=== PATIENT | male | born 1970 | race Caucasian/White ===

== ENCOUNTER 2016-11-03 10:07 | Emergency (ER) | payer BC ==
--- NOTE | 2016-11-03 10:40 | ERNOTE ---
Medical Problem HPI - General Chief Complaint: General Assessment Time Seen by Provider: 11/03/16 10:27 Source: patient Exam Limitations: no limitations - Immun/Allergies/Home Medications Immunizations: IMMUNIZATION HX History of Influenza Vaccine No Hx Pneumococcal Vaccination No Allergies/Adverse Reactions: Allergies Sulfa (Sulfonamide Antibiotics) Allergy (Verified 11/03/16 10:16) Home Medications: HOME MEDICATIONS Aspirin [Children's Aspirin] 81 mg PO DAILY 11/03/16 [Last Taken Unknown] Enalapril/Hydrochlorothiazide [Enalapril-Hctz 10-25 mg Tablet] 1 each PO DAILY 11/03/16 [Last Taken Unknown] Omeprazole 40 mg PO DAILY 11/03/16 [Last Taken Unknown] amLODIPine BESYLATE [Norvasc] 5 mg PO DAILY #30 tab 11/03/16 [Last Taken Unknown ] - History of Present History Narrative: Pt reports his BP has been elevated for a few weeks. C/o fatigue even after sleeping Pt. states he has been having blood pressures as high as 160/120 on and continues to run high for past 4 days runs anywhere from 139/95 to 157/97 Timing: constant Severity: moderate Review of Systems - Review of Systems Constitutional: Present: fatigue. Absent: recent illness, fever EYE: Present: no symptoms reported ENT: Present: no symptoms reported Respiratory: Absent: shortness of breath, cough Cardiology: Absent: chest pain, palpitations Gastrointestinal/Abdominal: Absent: nausea, vomiting Genitourinary: Present: no symptoms reported Musculoskeletal: Present: no symptoms reported Skin: Present: no symptoms reported Neurological: Present: no symptoms reported Endocrine: Present: no symptoms reported Hematologic/Lymphatic: Present: no symptoms reported Psych: Present: no symptoms reported - Patient's Past Medical History Patient History - Medical: GERD Patient History - Cardiac/Respiratory: Hypertension, Hyperlipidemia Patient History - Cancer: No Hx of Cancer Patient History - Surgical Procedures: T & A, Hernia Repair Patient History - Other: None - Social History Living Situations: home Psych History: No pertinent hx Alcohol Use: none Drug Use: none - Immunizations Hx Pneumococcal Vaccination: No History of Influenza Vaccine: No Physical Exam - Physical Exam General Appearance: Present: wd/wn, alert, no apparent distress Eye Exam: Normal inspection: bilateral, PERRL: bilateral Ears, Nose, Throat: Present: normal ENT inspection Neck: Present: normal inspection, nontender Respiratory: Present: no respiratory distress, no accessory muscle use, chest nontender, lungs clear Cardiovascular/Chest: Present: regular rate, rhythm, no murmur, normal peripheral pulses Extremity Exam: Present: normal inspection, no edema Neurological Exam: Present: alert, oriented, normal mood/affect, no motor/ sensory deficits Skin Exam: Present: normal color, warm/dry Lymphatic Exam: Present: no adenopathy ED Progress - Vital Signs Patient's Vital Signs:: I have reviewed the patient's vital signs. Vital Signs: Vital Signs 11/03/16 10:17 Temperature 36.4 C L Pulse Rate 87 Respiratory 12 Rate Blood Pressure 136/84 O2 Sat by Pulse 98 Oximetry - EKG EKG: NSR EKG read: Interp. by me - Progress/Reassessment Chief Complaint: General Assessment Departure - Departure Clinical Impression: Hypertension Qualifiers: Hypertension type: essential hypertension Qualified Code(s): I10 - Essential ( primary) hypertension Disposition: Home Follow Up Needed Condition: Fair Instructions: Hypertension, Eemo-pe-Yonn Additional Instructions: See your regular doctor within the next 1-2 weeks. Monitor your blood pressure daily. Return as needed Referrals: Jair Garsia DO [Primary Care Provider] - Prescriptions: amLODIPine BESYLATE [Norvasc] 5 mg PO DAILY #30 tab
[2016-11-03 10:50] LABS: Hematocrit 47.8 % (42.0-52.0); Hemoglobin 16.9 gm/dL (13.5-18.0); Mean Cell Volume 86.3 fl (78-100); Mean Corpuscular Hemoglobin 30.5 pg (27-31); Mean Corpuscular Hgb Conc 35.4 g/dl (32-36); Mean Platelet Volume 11.1 fl (6.0-9.5); Neutrophil # 4.5 K/mm3 (1.3-6.0); Platelet Count 142 K/mm3 (150-450); Red Blood Count 5.54 M/mm3 (4.7-6.0); White Blood Count 6.2 K/mm3 (4.0-10.5)
[2016-11-03 11:03] VITALS: BP 144/93
--- OUTSIDE RECORDS SUMMARY | 2016-11-03 11:03 | XMS REPORT | Continuity of Care Document ---
:1970 Author Organization [facility] ([facility]) Address [address] [place] [address] Phone [phone] Care Team Providers Name Role Phone Jair Garsia Primary Care Provider [phone] Source Comments This disclosure is being made pursuant to the Care Everywhere program, applicable federal and state laws, and may not contain all informaitonavailable regarding this patient.[facility] ([facility]) Active Allergies and Adverse Reactions Allergen Noted Date Severity Reactions Comments Sulfa (Sulfonamide Antibiotics) 10/01/2016 Diarrhea Current Medications Prescription Sig. Disp. Refills Start Date End Date Status enalapril-hydrochl TK 1 T PO ONCE D 2 08/22/2016 Active orthiazide 10-25 mg per tablet aspirin 81 mg EC Take 81 mg by mouth Active tablet daily. albuterol 90 Use 2 Puffs by Active mcg/Actuation inhalation every 6 inhaler hours as needed. EPINEPHrine 0.3 Inject 0.3 mg Active mg/0.3 mL intramuscularly once injection pen as needed. omeprazole 40 mg Take 1 capsule (40 mg 30 capsule 11 10/01/2016 Active enteric coated total) by mouth capsule daily. Active Problems No known active problems Most Recent Encounters Date Type Specialty Providers Description 10/01/2016 Office Visit Otolaryngology Andrae Rai Dx: Gastroesophageal MD Cash reflux disease, esophagitis presence not specified (Primary Dx) 10/01/2016 Pharmacy Visit Social History Tobacco Use Types Packs/Day Years Used Date Former Smoker Cigarettes 1 10 Quit: 09/19/2003 Smokeless Tobacco: Former User Chew Quit: 12/26/2012 Alcohol Use Drinks/Week oz/Week Comments Yes 40 Cans of beer Last Filed Vital Signs Vital Sign Reading Time Taken Blood Pressure 121/84 10/01/2016 11:29 AM [employer] Pulse 77 10/01/2016 11:29 AM [employer] INS[employer] Temperature 36.7 C (98.1 F) 10/01/2016 11:29 AM [employer] INSPECTOR Respiratory Rate - - Height 1.905 m (6' 3") 10/01/2016 11:29 AM [employer] Weight - - Body Mass Index - - Oxygen Saturation - - Plan of Care Date Type Specialty Providers Description 01/27/2017 Appointment Otolaryngology Andrae Rai, Chief Comp: Patient MD Reported Reason For [address] [place] [address] [phone] (Fax) Health Maintenance Due Date Last Done Comments Hepatitis B Vaccine (1 of 3 - Primary Series) 1970 Tdap Vaccine 1981 Lipid Disorder Screening 1988 MMR Vaccine 1988 Td Vaccine 1988 Influenza Vaccine: Seasonal (#1) 03/16/2016 Procedures from Last 3 Months Procedure Name Priority Date/Time Associated Diagnosis Comments LARGSC FLX FIBOPT Routine 10/25/2016 9:04 Gastroesophageal reflux Results for this DX PM CDT disease, esophagitis procedure are in presence not specified the results section. Results from Last 3 Months LARYNGOSCOPY (10/25/2016 9:04 PM) Narrative Andrae Rai MD 10/25/20169:04 PM Clinic Note Encounter Date: 10/01/2016 Subjective: Kel Barrera is a 46 y.o. male with a history of difficulty swallowing over the past several months with both liquids and solids. He was seen by Dr Gonzales, a swallow study done, and a flexible laryngoscopy done. The patient comes for a second opinion. He denies voice change, sore throat, or breathing problems. He denies weight loss. No significant Past Medical History Past Surgical History Procedure Laterality Date Hernia [id number] Family History Problem Relation Age of Onset Diabetes Mother Diabetes Maternal Grandmother Diabetes Maternal Grandfather Hypertension Mother Hypertension Father Current Outpatient Prescriptions Medication Sig Dispense Refill albuterol 90 mcg/Actuation inhaler Use 2 Puffs by inhalation every 6 hours as needed. aspirin 81 mg EC tablet Take 81 mg by mouth daily. enalapril-hydrochlorthiazide 10-25 mg per tablet TK 1 T PO ONCE D2 EPINEPHrine 0.3 mg/0.3 mL injection pen Inject 0.3 mg intramuscularly once as needed. omeprazole 40 mg enteric coated capsule Take 1 capsule (40 mg total) by mouth daily. 30 capsule 11 No current facility-administered medications for this visit. Allergies Allergen Reactions Sulfa (Sulfonamide Antibiotics) Diarrhea Social History Social History Marital Status: Spouse Name: N/A Number of Children: N/A Years of Education: N/A Occupational History Not on file. Social History Main Topics Smoking status: Former Smoker -- 1.00 packs/day for 10 years Types: Cigarettes Quit date: 09/19/2003 Smokeless tobacco: Former User Types: Chew Quit date: 12/26/2012 Alcohol Use: Yes 40 Cans of beer per week Drug Use: No Sexual Activity: Partners: Female Other Topics Concern Not on file Social History Narrative No narrative on file Review of Systems ROS All systems were reviewed and are negative except for: Nose/throat/mouth: Sinus problems, Throat problems GI: Heart burn, Diarrhea Immune: Seasonal allergies Objective: BP 121/84 mmHg | Pulse 77 | Temp(Src) 36.7 C (98.1 F) (Temporal artery) | Ht 1.905 m (6' 3") Appearance: normal Communication: normal Head/Face: inspection -normal palpation -normal salivary glands -normal facial strength -normal Skin:normal Ocular Motility:not assessed Ears:auricle (AD) -normal EAC (AD) -normal TM mobility (AD) -normal auricle () -normal EAC () -normal TM mobility () -normal Oral Cavity:lips -normal dentition -normal mucosa -normal hard palate -normal Nose:ext. inspection -normal int. inspection -normal Neck:mass -normal thyroid -normal Lymphatic:normal Cardiovascular: normal Respiratory:normal Neuro/Psych.:mood/affect -normal mental status -normal Data Reviewed: Outside Swallow Study Report - No abnormalities Procedure Performed: Laryngoscopy (flexible) Scope details: diagnostic Additional Procedure Detail: Nasopharynx: normal Oropharynx:mucosa -normal soft palate -normal tonsils -normal Hypopharynx:edematous Larynx:mucosa -normal TVF mobility -normal Assessment: Encounter Diagnoses ICD-9-CM ICD-10-CM 1. Gastroesophageal reflux disease, esophagitis presence not specified 530.81 K21.9 Plan: Staff Physician Comments The patient has a history of swallowing issues and feeling something in his throat. Will plan presumptive treatment for GERD with PPI and reassess in three to four months. Andrae Rai MD, FACS Insurance Examiner Department of Otolaryngology--Head and Neck Surgery [facility]
[2016-11-03 11:11] LABS: ALT 48 U/L (19-67); AST 20 U/L (0-48); Alkaline Phosphatase * 83 U/L (50-170); Anion Gap 14.7 mmol/L (6.8-13.8); BUN/Creatinine Ratio 14.5 (9.0-21.6); Bilirubin, Total 0.7 mg/dL (0.0-1.1); Blood Urea Nitrogen 12 mg/dL (6-23); Ca. Corrected For Albumin 8.9 mg/dL (8.4-10.2); Calcium * 9.2 mg/dL (7.9-10.9); Carbon Dioxide 26.1 mmol/L (24-32.6); Chloride 103 mmol/L (97-106); Glucose * 125 mg/dL (70-110); Magnesium 2.1 mg/dL (1.2-2.8); Potassium 3.8 mmol/L (3.4-4.6); Sodium 140 mmol/L (132-142); Total Protein 7.4 gm/dL (6.2-8.2); Troponin I Less than 0.017 ng/ml (0.00-0.10)
== END 2016-11-03 11:30 | disposition home or self-care (01) ==
LOC: ER 10:07
DX: I10 Essential (primary) hypertension (principal); K21.9 Gastro-esophageal reflux disease without esophagitis